=== PATIENT | male | born 1980 | race Caucasian/White ===

== ENCOUNTER 2023-02-09 11:26 | Emergency (ER) | payer SELFPAY | END 2023-02-09 12:10 | LOC: MW.ED 11:26 | DX: Z02.89 Encounter for other administrative examinations (principal) | CPT/HCPCS: 99284 ==

== ENCOUNTER 2023-03-20 20:55 | Emergency (ER) | payer SELFPAY ==
[2023-03-20 21:25] LABS: BASOPHILS ABSOLUTE AUTO 0.02 K/uL (0.00-0.20); BASOPHILS PERCENT AUTO 0.2 % (0.0-1.0); EOSINOPHILS ABSOLUTE AUTO 0.07 K/uL (0.00-0.45); EOSINOPHILS PERCENT AUTO 0.7 % (0.0-6.0); HEMATOCRIT 46.2 % (42.0-52.0); HEMOGLOBIN 15.9 g/dL (14.0-18.0); IMMATURE GRAN ABSOLUTE AUTO 0.03 K/uL (0.00-0.05); IMMATURE GRAN PERCENT AUTO 0.3 % (0.0-0.4); LYMPHOCYTES ABSOLUTE AUTO 2.72 K/uL (1.00-4.80); LYMPHOCYTES PERCENT AUTO 27.4 % (24.0-44.0); MEAN CORPUSCULAR HEMOGLOBIN 31.5 pg (28.0-32.0); MEAN CORPUSCULAR HGB CONC 34.4 g/dL (32.0-36.0); MEAN CORPUSCULAR VOLUME 91.5 fL (83.0-99.0); MEAN PLATELET VOLUME 8.8 fL (9.4-12.4); MONOCYTES ABSOLUTE AUTO 0.76 K/uL (0.00-0.80); MONOCYTES PERCENT AUTO 7.7 % (0.0-8.0); NEUTROPHILS ABSOLUTE AUTO 6.32 K/uL (1.80-7.70); NEUTROPHILS PERCENT AUTO 63.7 % (41.0-71.0); PLATELET COUNT,PLT 343 K/uL (150-400); RED BLOOD CELL COUNT 5.05 M/uL (4.52-5.90); WHITE BLOOD CELL COUNT,WBC 9.92 K/uL (3.9-11.3)
[2023-03-20 22:01] LABS: A/G RATIO 1.1 (0.9-1.6); ALBUMIN 3.7 g/dL (3.4-5.0); BILIRUBIN TOTAL 0.5 mg/dL (0.2-1.0); CALCIUM 8.9 mg/dL (8.5-10.1); CARBON DIOXIDE,CO2 29.8 mmol/L (21.0-32.0); CREATININE 1.1 mg/dL (0.8-1.3); EST CRCL DRUG DOSING (CG) 86.59 mL/min; POTASSIUM,K 4.1 mmol/L (3.5-5.1); PROTEIN TOTAL,TP 7.1 g/dL (6.4-8.2)
[2023-03-20] MEDS ORDERED: Ketorolac 30 MG/ML SDV IVPUSH ONE (22:06)
== END 2023-03-20 23:00 | disposition left against medical advice (07) ==
LOC: MW.ED 20:55
DX: R07.9 Chest pain, unspecified (principal)
CPT/HCPCS: 36415; 71045; 71045-26; 80053; 84484; 85025; 93005; 93010; 99284; 99285

== ENCOUNTER 2023-03-26 05:00 | Emergency (ER) | payer MEDICAID ==
[2023-03-26] MEDS: Ibuprofen 800 MG Tab PO ONE (06:46)
[2023-03-26] MEDS: Diazepam 2 MG Tab PO STA (06:52)
== END 2023-03-26 06:57 ==
LOC: MW.ED 05:00
DX: M25.512 Pain in left shoulder (principal); M25.561 Pain in right knee; F17.210 Nicotine dependence, cigarettes, uncomplicated; Z88.0 Allergy status to penicillin
CPT/HCPCS: 73030; 73562; 99283; A9270

== ENCOUNTER 2023-03-28 05:08 | Emergency (ER) | payer SELFPAY | END 2023-03-28 05:46 | disposition left against medical advice (07) | LOC: MW.ED 05:08 | DX: Z53.21 Procedure and treatment not carried out due to patient leaving prior to being seen by health care provider (principal) ==

== ENCOUNTER 2023-06-05 19:24 | Emergency (ER) | payer MEDICAID, OTHER | END 2023-06-05 19:32 | disposition left against medical advice (07) | LOC: MW.ED 19:24 | DX: Z53.21 Procedure and treatment not carried out due to patient leaving prior to being seen by health care provider (principal) ==

== ENCOUNTER 2023-07-02 19:04 | Emergency (ER) | payer MEDICAID | END 2023-07-02 21:27 | disposition home or self-care (01) | LOC: MW.ED 19:04 | DX: S49.92XA Unspecified injury of left shoulder and upper arm, initial encounter (principal); M25.521 Pain in right elbow; Z75.8 Other problems related to medical facilities and other health care; Z88.0 Allergy status to penicillin; X58.XXXA Exposure to other specified factors, initial encounter; Y93.89 Activity, other specified | CPT/HCPCS: 73030-26-LT; 73030-LT; 73080-26-RT; 73080-RT; 99283; 99284 ==

== ENCOUNTER 2023-11-05 21:56 | Emergency (ER) | payer MEDICAID ==
[2023-11-05] MEDS: Acetaminophen 325 MG Tab PO ONE (22:19)
== END 2023-11-05 22:27 | disposition home or self-care (01) ==
LOC: MW.ED 21:56
DX: Z02.89 Encounter for other administrative examinations (principal); I10 Essential (primary) hypertension; F17.210 Nicotine dependence, cigarettes, uncomplicated; Z75.8 Other problems related to medical facilities and other health care; Z88.0 Allergy status to penicillin
CPT/HCPCS: 99283; A9270

== ENCOUNTER 2024-03-15 00:57 | Emergency (ER) | payer MEDICAID | END 2024-03-15 01:07 | disposition left against medical advice (07) | LOC: MW.ED 00:57 | DX: Z53.21 Procedure and treatment not carried out due to patient leaving prior to being seen by health care provider (principal) ==